=== PATIENT | male | born 1970 | race Caucasian/White ===

== ENCOUNTER → 2016-07-16 | Outpatient (CLI) | payer OTHER ==
--- NOTE | 2016-07-16 23:24 | MR ---
EXAMINATION TYPE: MR lumbar spine wo/w con DATE OF EXAM: 07/16/2016 8:28 PM COMPARISON: NONE HISTORY: Laminectomy 09/08/2015, still having low back pain and leg pain TECHNIQUE: Multiplanar, multisequence images of the lumbar spine were acquired utilizing 20 mL intravenous Multi Cosme gadolinium contrast. Findings The lumbar vertebra have normal alignment. There is mild decreased signal in the disks at L1-2 L3-4 L 4-5 and L5-S1. There is a mild posterior concentric L1-2 disc herniation. There is a developmentally adequate spinal canal. There is laminectomy of L5 on the left side. There is no paraspinal mass. Ther e is no compression fracture. The neural foramina are fairly well-maintained. There is posterior left -sided L4-5 and L5-S1 lumbar disc herniation impinging on the lateral recess. There is no pathologic enhancement. The sacroiliac joints appear normal. IMPRESSION: Left-sided laminectomy at L5. There are posterior left-sided L4-5 and L5-S1 disc herniations that greg ear increased in size compared to previous MR scan of 06/15/2010. There is some lateral recess impinge ment. There is no stenosis of the canal. There is a mild posterior concentric L1-2 disc herniation wh ich is slightly larger than last exam. No fracture.
== END | disposition home or self-care (01) ==
LOC: RADMRIMAIN 19:41
PROVIDERS: ATTEND Physician Assistant
DX: M51.17 Intervertebral disc disorders with radiculopathy, lumbosacral region (principal); Z98.890 Other specified postprocedural states
CPT/HCPCS: 72158; A9577